=== PATIENT | female | born 1965 | race American Indian/Alaskan Native ===

== ENCOUNTER 2018-08-25 21:43 | Emergency (ER) | payer OTHER ==
[2018-08-25 22:39] LABS: Basophils % (Auto) 0.3 % (0.0-1.8); Eosinophils # (Auto) 0.1 K/mm3 (0.0-0.4); Eosinophils % (Auto) 0.6 % (0.0-4.3); Hematocrit 33.7 % (30.3-42.9); Hemoglobin 11.6 gm/dl (10.1-14.3); Lymphocytes # (Auto) 1.9 K/mm3 (1.2-5.4); Lymphocytes % (Auto) 20.6 % (13.4-35.0); Mean Corpuscular HGB Conc 35 % (30-34); Mean Corpuscular Volume 81 fl (79-97); Monocytes # (Auto) 0.5 K/mm3 (0.0-0.8); Platelet Count 315 K/mm3 (140-440); Red Blood Count 4.16 M/mm3 (3.65-5.03); Red Cell Distribution Width 14.6 % (13.2-15.2)
[2018-08-25] MEDS ORDERED: ANTIVERT PO ONE (23:42)
[2018-08-25] MEDS ORDERED: ZOFRAN ODT PO ONE (23:42)
[2018-08-26 00:28] LABS: Calcium 10.2 mg/dL (8.4-10.2)
--- NOTE | 2018-08-26 00:44 | Emergency Department Report ---
ED Dizziness HPI - General Chief Complaint: Syncope Stated Complaint: DIZZY Time Seen by Provider: 08/25/18 23:37 Source: patient, EMS Mode of arrival: Stretcher Limitations: No Limitations - History of Present Illness Initial Comments: Patient is a 53-year-old Female who states she was at work and became acutely very dizzy. Patient states dizziness is a spinning sensation that is accompanied with nausea. Patient states she was at work and this occurred suddenly. Patient became somewhat diaphoretic and had to sit down. Patient states worse when she is turning her head. Patient denies any cough congestion fevers chills or vomiting at this time. Patient denies any cold symptoms. - Related Data Previous Rx's Medication Instructions Recorded Last Taken Type Meclizine [Antivert] 25 mg PO TID PRN #12 tablet 08/26/18 Unknown Rx Ondansetron [Zofran Odt] 4 mg PO Q8HR PRN #10 tab.rapdis 08/26/18 Unknown Rx Allergies Allergy/AdvReac Type Severity Reaction Status Date / Time No Known Allergies Allergy Unverified 07/29/15 10:08 ED Review of Systems ROS: Stated complaint: DIZZY Other details as noted in HPI Comment: All other systems reviewed and negative ED Past Medical Hx - Past Medical History Hx Hypertension: Yes Additional medical history: Obesity - Surgical History Past Surgical History?: Yes Additional Surgical History: Bilateral knee replacement - Social History Smoking Status: Never Smoker Substance Use Type: None - Medications Home Medications: Home Medications Medication Instructions Recorded Confirmed Last Taken Type Meclizine [Antivert] 25 mg PO TID PRN #12 tablet 08/26/18 Unknown Rx Ondansetron [Zofran Odt] 4 mg PO Q8HR PRN #10 tab.rapdis 08/26/18 Unknown Rx ED Physical Exam - General Limitations: No Limitations General appearance: alert, in no apparent distress - Head Head exam: Present: atraumatic, normocephalic - Eye Eye exam: Present: normal appearance - ENT ENT exam: Present: mucous membranes moist - Neck Neck exam: Present: normal inspection - Respiratory Respiratory exam: Present: normal lung sounds bilaterally. Absent: respiratory distress, wheezes, rales, rhonchi - Cardiovascular Cardiovascular Exam: Present: regular rate, normal rhythm. Absent: systolic murmur, diastolic murmur, rubs, gallop - GI/Abdominal GI/Abdominal exam: Present: soft, normal bowel sounds. Absent: distended, tenderness, guarding, rebound - Extremities Exam Extremities exam: Present: normal inspection - Back Exam Back exam: Present: normal inspection - Neurological Exam Neurological exam: Present: alert, oriented X3 - Psychiatric Psychiatric exam: Present: normal affect, normal mood, other (patient has a positive Nasim-Hallpike test) - Skin Skin exam: Present: warm, dry, intact, normal color. Absent: rash ED Course Vital Signs 08/25/18 22:05 Temperature 97.7 F Pulse Rate 88 Respiratory 18 Rate Blood Pressure 151/86 O2 Sat by Pulse 100 Oximetry ED Medical Decision Making - Lab Data Result diagrams: 08/25/18 22:24 08/25/18 22:24 - Medical Decision Making Did discuss the patient's initial blood pressure with exertion states she takes her blood pressure medicines at night. Patient is not aware of her blood pressures been running over the last several weeks. Patient denied did also discuss her creatinine. This is a level that she needs to get follow-up with. Patient is feeling relief after taking the Antivert the patient be discharged home. Critical care attestation.: If time is entered above; I have spent that time in minutes in the direct care of this critically ill patient, excluding procedure time. ED Disposition Clinical Impression: Renal insufficiency BPV (benign positional vertigo) Qualifiers: Laterality: unspecified laterality Qualified Code(s): H81.10 - Benign paroxysmal vertigo, unspecified ear Disposition: DC-01 TO HOME OR SELFCARE Is pt being admited?: No Does the pt Need Aspirin: No Condition: Stable Instructions: Vertigo (ED) Additional Instructions: Your serum creatinine (one of the kidney labs) was 1.5 today. Please follow-up with your primary care physician to have this monitored. Referrals: PRIMARY CARE, [Primary Care Provider] - 3-5 Days Time of Disposition: 00:46
[2018-08-26 01:02] VITALS: BP 128/81
== END 2018-08-26 01:03 | disposition home or self-care (01) ==
LOC: ED 21:43
DX: N28.9 Disorder of kidney and ureter, unspecified (principal); H81.10 Benign paroxysmal vertigo, unspecified ear; I10 Essential (primary) hypertension; Z96.653 Presence of artificial knee joint, bilateral
CPT/HCPCS: 36415; 80048; 84703; 85025; 93005; 93010; Q0162

== ENCOUNTER 2020-10-30 08:39 | Outpatient (CLI) | payer OTHER ==
--- NOTE | 2020-10-30 09:56 | XRay Report ---
CHEST 2 VIEWS INDICATION: R06.02 SHORTNESS OF BREATH. COMPARISON: None FINDINGS: Support devices: None. Heart: Within normal limits. Lungs/pleura: No acute air space or interstitial disease. No pneumothorax. Additional findings: None. IMPRESSION: No acute findings. Signer Name: Сергей Vargas Jr, MD Signed: 10/30/2020 9:44 AM Workstation Name: [id number]
== END 2020-10-30 08:40 | disposition home or self-care (01) ==
LOC: SPVIMAG 08:39
PROVIDERS: ATTEND Family Medicine
DX: R06.02 Shortness of breath (principal)
CPT/HCPCS: 71046